=== PATIENT | female | born 1955 | race Caucasian/White ===

== ENCOUNTER 2018-10-31 05:42 | Day surgery (SDC) | payer MEDICARE, OTHER ==
[2018-10-30 16:10] LABS: BASOPHILS % (AUTO) 0.6 % (0-1); EOSINOPHILS # (AUTO) 0.1 X10'3 (0-0.9); EOSINOPHILS % (AUTO) 1.5 % (0-6); HEMOGLOBIN 13.1 g/dl (12.0-16.0); LYMPHOCYTES # (AUTO) 1.7 X10'3 (1.1-4.8); LYMPHOCYTES % (AUTO) 23.2 % (21-51); MEAN CORPUSCULAR HEMOGLOBIN 30.4 PG (27.0-31.0); MEAN CORPUSCULAR HGB CONC 33.6 g/dL (33.0-36.5); MEAN CORPUSCULAR VOLUME 90.2 FL (78-98); MEAN PLATELET VOLUME 8.1 FL (7.4-10.4); MONOCYTES # (AUTO) 0.5 X10'3 (0-0.9); MONOCYTES % (AUTO) 6.6 % (2-12); NEUTROPHILS # (AUTO) 4.9 X10'3 (1.8-7.7); NEUTROPHILS % (AUTO) 68.1 % (42-75); PLATELET COUNT 246 X10'3 (140-440); RED BLOOD COUNT 4.32 X10'6 (4.20-5.60); RED CELL DISTRIBUTION WIDTH 13.5 % (11.5-14.5); WHITE BLOOD COUNT 7.2 X10'3 (4.5-11.0)
[2018-10-30 16:20] LABS: ALBUMIN 3.4 G/DL (3.4-5.0); ANION GAP 8 (8-16); BLOOD UREA NITROGEN 18 MG/DL (7-18); BUN/CREATININE RATIO 19.8 (6.6-38.0); CALCIUM 8.7 MG/DL (8.5-10.1); CHLORIDE 109 MMOL/L (99-107); CREATININE 0.91 MG/DL (0.40-0.90); GLUCOSE 92 MG/DL (70-104); POTASSIUM 4.1 MMOL/L (3.5-5.1); SODIUM 144 MMOL/L (135-145); TOTAL CARBON DIOXIDE 26.8 MMOL/L (24-32); eGFR 62 ML/MIN
[2018-10-30 16:56] LABS: PARTIAL THROMBOPLASTIN TIME 27 SECONDS (22-32)
[~2018-10-31] VITALS: Ht 158.8 cm; Wt 87.8 kg
[2018-10-31] VITALS (10 sets, daily range): BP systolic 109–144; BP diastolic 57–87
[~2018-10-31 05:42] MED LIST: LIDOcaine Viscous 15ml cup ONE; MIDAZolam 5mg/5ml vial ONE; fentaNYL/PF 50MCG/1 ML 2ML syringe ONE
[2018-10-31] MEDS ORDERED: normal saline 1,000 ML IV SCH (06:00)
[2018-10-31] MEDS ORDERED: diphenhydrAMINE 25mg capsule PO PRN (06:00)
[2018-10-31] MEDS ORDERED: LORazepam 0.5 MG tablet PO PRN (06:00)
[2018-10-31] MEDS ORDERED: GABA-534 PO (06:12)
[2018-10-31] MEDS ORDERED: AMLO10TA PO (06:12)
[2018-10-31] MEDS ORDERED: BENA40TA73 PO (06:12)
[2018-10-31] MEDS ORDERED: BAC10T PO (06:12)
[2018-10-31] MEDS ORDERED: LEVO100T PO (06:12)
[2018-10-31] MEDS ORDERED: LIDOcaine/PRILOcaine 5gm cream TP ONE (06:40)
[2018-10-31] MEDS ORDERED: iohexol 350 MG/ML 50ML vial IV ONE (07:46)
[2018-10-31] MEDS ORDERED: LIDOcaine 1% (10mg/ml)w/preservative injection 20ml MDV ONE (07:46)
[2018-10-31] MEDS ORDERED: iohexol 350MG/ML 100ml bottle IV ONE ×2 (07:47→08:43)
[2018-10-31] MEDS ORDERED: nitroGLYCERIN-Tridil 50MG/D5W 250 ML IV ONE (07:56)
[2018-10-31] MEDS ORDERED: heparin 1,000unit/ml 10ml vial 10 ML ONE (07:56)
[2018-10-31] MEDS ORDERED: verapamil 2.5 mg/ml inj IV ONE (07:56)
[2018-10-31] MEDS ORDERED: fentaNYL/PF 50MCG/1 ML 2ML syringe ONE (08:04)
[2018-10-31] MEDS ORDERED: midazolam 2 mg/2 ml injection ONE (08:04)
[2018-10-31 08:50] LABS: ISTAT Hct MIX 36 %PCV (35-48); ISTAT O2 SATURATION MIX VENOUS 72 % (60-80); ISTAT SOURCE MIX
[2018-10-31 08:50] LABS: ISTAT HGB ART 12.2 g/dl (12.0-16.0); ISTAT Hct ART 36 %PCV (35-48); ISTAT O2 SATURATION ARTERIAL 97 % (95-98); ISTAT SOURCE ART
[2018-10-31] MEDS ORDERED: normal saline 1000ml 1,000 ML IV SCH (09:55)
--- NOTE | 2018-10-31 12:19 | NUR ---
pt complaint of "headache". no pain medications ordered at this time. Pt states she has taken [place] prior but experiences "itching" and takes Benadryl. I offered to contact MD to request medications, pt states," no, I will just deal with it". VS stable as charted.
--- NOTE | 2018-10-31 13:05 | NUR ---
sitting pt up in bed, pt at 35% incline, groin site soft, drsg CD&I.
--- NOTE | 2018-10-31 13:20 | NUR ---
pt sitting at 90 degrees, groin site soft, drsg CD&I. pt vs stable as charted.
== END 2018-10-31 14:05 | disposition home or self-care (01) ==
LOC: SSTAY O 05:42
PROVIDERS: ATTEND Internal Medicine Cardiovascular Disease
DX: I25.10 Atherosclerotic heart disease of native coronary artery without angina pectoris (principal); I10 Essential (primary) hypertension; E78.5 Hyperlipidemia, unspecified
CPT/HCPCS: 36415; 80048; 82803; 85014; 85025; 85610; 85730; 93005; 93460; 99152; 99153; C1769; C1894; J1644; J2001; J2250; J3010; J7030; Q0163; Q9967; A4620; A5120; A6258; J3490